=== PATIENT | female | born 1955 | race Caucasian/White ===

== ENCOUNTER 2016-12-14 20:32 | Emergency (ER) | payer SELFPAY ==
[~2016-12-14] VITALS: Ht 154.9 cm; Wt 63.5 kg
[2016-12-14 20:43] VITALS: Ht 154.9 cm; Wt 63.5 kg
[2016-12-15] MEDS ORDERED: SOD CHLORIDE 0.9% 1,000 ML IV STA (00:27)
[2016-12-15] MEDS ORDERED: HYDROmorphONE 1 MG/ML SYG IV STA (00:27)
[2016-12-15] MEDS ORDERED: ONDANSETRON 4 MG INJ IV STA (00:27)
[2016-12-15] MEDS ORDERED: LORAZEPAM 2 MG INJ IV ONE (00:30)
--- NOTE | 2016-12-15 00:33 | ERA ---
ER Documentation Chief Complaint Date/Time DATE: 12/15/16 TIME: 00:30 Chief Complaint cp, dizziness, abd pain with n/v all day today HPI 61-year-old female who presents to the emergency room with multiple complaints. The majority of her complaints include nonbloody nonbilious emesis that started this afternoon with associated epigastric abdominal discomfort that is moderate to severe and cramping and nonradiating. She denies any chest pain to me but noted chest pain in triage. She denies any fevers or chills, regular bowel movements and no abdominal surgical history. She denies any recent travel sick contacts or antibiotics, no lumbar back pain. ROS All systems reviewed and are negative except as per history of present illness. Medications Home Meds Active Scripts Polyethylene Glycol* (Miralax*) 17 Gm Powd.pack, 17 GM PO DAILY Y for CONSTIPATION, #7 Prov:CRESCENCIO JUAREZ MD 12/15/16 Ciprofloxacin Hcl* (Ciprofloxacin Hcl*) 500 Mg Tablet, 500 MG PO BID for 5 Days , TAB Prov:CRESCENCIO JUAREZ MD 12/15/16 Ondansetron (Ondansetron Odt) 4 Mg Tab.rapdis, 4 MG PO Q6H Y for NAUSEA AND/OR VOMITING, #30 TAB Prov:CRESCENCIO JUAREZ MD 12/15/16 Dicyclomine Hcl* (Bentyl*) 10 Mg Capsule, 10 MG PO QID Y for abdominal cramping , #20 CAP Prov:CRESCENCIO JUAREZ MD 12/15/16 Allergies Allergies: Coded Allergies: No Known Allergy (Unverified , 12/15/16) FmHx Family History: No diabetes Physical Exam Vitals Vital Signs Date Time Temp Pulse Resp B/P Pulse Ox O2 Delivery O2 Flow Rate FiO2 12/15/16 03:02 97.7 74 13 117/58 100 Room Air 12/14/16 20:43 98.0 78 20 117/59 100 Physical Exam General: Tearful anxious and uncomfortable Head: Normocephalic, atraumatic. Eyes: Pupils equally reactive, EOM intact ENT: Moist mucous membranes Neck: Supple, no lymphadenopathy Respiratory: Lungs clear bilaterally, no distress Cardiovascular: RRR, no murmurs, rubs, or gallops Abdominal: Soft, mild diffuse abdominal tenderness localizing to the epigastrium , negative Moura sign, no tenderness to McBurney's point, no pulsatile mass : Deferred MSK: No edema, no unilateral swelling, 5/5 strength Neurologic: Alert and oriented, moving all extremities, normal speech, no focal weakness, no cerebellar signs Skin: No rash Psych: Normal mood Result Diagram: 12/15/16 0041 12/15/16 0041 Results 24 hrs Laboratory Tests Test 12/15/16 00:35 12/15/16 00:41 12/15/16 00:55 Urine Color YELLOW Urine Clarity SLIGHTLY CLOUDY Urine pH 7.0 Urine Specific [place] 1.019 Urine Ketones 1+mg/dL Urine Nitrite NEGATIVEmg/dL Urine Bilirubin NEGATIVEmg/dL Urine Urobilinogen NEGATIVEmg/dL Urine Leukocyte Esterase 1+Kareem/ul Urine Microscopic RBC 2/HPF Urine Microscopic WBC 4/HPF Urine Squamous Epithelial Cells FEW/HPF Urine Mucus FEW/HPF Urine Yeast (Budding) FEW/HPF Urine Hemoglobin NEGATIVEmg/dL Urine Glucose NEGATIVEmg/dL Urine Total Protein NEGATIVEmg/dl White Blood Count 13.010^3/ul Red Blood Count 5.0710^6/ul Hemoglobin 13.6g/dl Hematocrit 40.4% Mean Corpuscular Volume 79.7fl Mean Corpuscular Hemoglobin 26.8pg Mean Corpuscular Hemoglobin Concent 33.7g/dl Red Cell Distribution Width 13.7% Platelet Count 04202^3/UL Mean Platelet Volume 9.9fl Neutrophils % 82.1% Lymphocytes % 14.0% Monocytes % 3.4% Eosinophils % 0.0% Basophils % 0.2% Nucleated Red Blood Cells % 0.0/100WBC Neutrophils # (Manual) 1110^3/ul Lymphocytes # 1.810^3/ul Monocytes # 0.410^3/ul Eosinophils # 0.010^3/ul Basophils # 0.010^3/ul Nucleated Red Blood Cells # 0.010^3/ul Sodium Level 141mmol/L Potassium Level 4.3mmol/L Chloride Level 104mmol/L Carbon Dioxide Level 23mmol/L Anion Gap 18 Blood Urea Nitrogen 17mg/dl Creatinine 0.57mg/dl Glucose Level 136mg/dl Calcium Level 10.1mg/dl Total Bilirubin 1.1mg/dl Direct Bilirubin 0.00mg/dl Indirect Bilirubin 1.1mg/dl Aspartate Amino Transf (AST/SGOT) 25IU/L Alanine Aminotransferase (ALT/SGPT) 24IU/L Alkaline Phosphatase 118IU/L Troponin I < 0.012ng/ml Total Protein 8.5g/dl Albumin 4.7g/dl Globulin 3.80g/dl Albumin/Globulin Ratio 1.23 Lipase 77U/L Lactic Acid Level 2.1mmol/L Current Medications Medications (Trade) Dose Ordered Sig/Lorin Route PRN Reason Start Time Stop Time Status Last Admin Dose Admin Sodium Chloride (NS) 1,000 ml @ 1,000 mls/hr Q1H STAT IV 12/15/16 00:27 12/15/16 01:26 DC 12/15/16 01:08 Hydromorphone HCl (Dilaudid) 0.5 mg ONCE STAT IV 12/15/16 00:27 12/15/16 00:29 DC 12/15/16 01:08 Ondansetron HCl (Zofran Inj) 4 mg ONCE STAT IV 12/15/16 00:27 12/15/16 00:29 DC 12/15/16 01:08 Lorazepam 0.5 mg 0.5 mg ONCE ONCE IV 12/15/16 00:30 12/15/16 00:31 DC 12/15/16 01:09 Sodium Chloride (NS) 100 ml @ ud STK-MED ONCE .ROUTE 12/15/16 03:07 12/15/16 03:08 DC 12/15/16 03:10 Iohexol (Omnipaque 300mg/ ml) 150 ml STK-MED ONCE .ROUTE 12/15/16 03:07 12/15/16 03:08 DC 12/15/16 03:10 Procedures/MDM EKG, MONITORS, & DIAGNOSTIC IMAGING: EKG: I reviewed and interpreted a 12-lead EKG. Rhythm: Normal sinus rhythm Ectopy: None Intervals: No abnormalities ST segments: No elevations or depressions T waves: No contiguous inversions CT abdomen and pelvis: IMPRESSION: Small bowel feces sign in prominent loops of small bowel left upper quadrant and right lower quadrant is nonspecific. Evaluation is limited without intravenous contrast. Differential diagnosis includes, but is not limited to, dysmotility and malabsorption or small bowel ischemia. Recommend correlation with serum lactate. Patient may benefit from repeat CT abdomen pelvis with intravenous contrast. Scattered colonic diverticulosis without diverticulitis. Appendix is not identified. Findings were discussed with Dr. Crescencio Juarez by Dr. Lindsay Fay on November at 1:[address] abd w/ iv IMPRESSION: Fecalized loops of small bowel within the left abdomen could suggest a mild ileus or enteritis, unchanged. There is no bowel obstruction. Moderate retained stool within the colon. Moderately distended bladder. Small hepatic cyst. Mild bibasilar atelectasis. Otherwise no acute abnormality identified within the abdomen and pelvis. LAB INTERPRETATION: Slight leukocytosis of 13. Borderline lactic acid of 2.1 MEDICAL DECISION MAKING: The patient presents to the emergency room with abdominal pain nausea and vomiting. She reported chest pain at triage but denies this to me. I believe her symptoms have a very broad differential including gastritis, viral process or acute intra-abdominal process such as bowel obstruction, colitis. Low clinical concern for hepatobiliary obstruction or acute cholecystitis or appendicitis. However, given the patient's age CT imaging would be appropriate. I do not believe this is consistent with acute vascular process such as dissection or aneurysm. Consider nephrolithiasis as well. No evidence of cardiopulmonary process such as acute NM however EKG and troponin would be appropriate given her epigastric abdominal component. ER COURSE: The patient's initial CT was concerning for possible mesenteric ischemia. Based on the patient's abdominal pain CT with IV contrast ordered. The patient' s lactic acid is borderline. However her pain is dramatically improved and controlled and she is resting and sleeping. Her repeat CT shows evidence of possible enteritis versus ileus. However the patient is having bowel movements. I do not believe this is consistent clinically with a ileus. I believe the patient may benefit from a short course of ciprofloxacin, Bentyl and stool softener given predominance of stool throughout the colon. I feel the patient can be safely discharged home with close follow-up with return precautions for fever or intractable abdominal pain. I kept the patient and/or family informed of laboratory and diagnostic imaging results throughout the emergency room course. DISPOSITION PLAN: We discussed follow up with the patient's primary care doctor within 24 to 48 hours as needed. We also discussed return to the emergency room for worsening symptoms or worsening condition. Outpatient referral: [None required] Discharge Medications: Bentyl, Zofran, MiraLAX, Cipro Departure Diagnosis: Primary Impression: Enteritis Additional Impression: Abdominal pain Qualified Code: R10.84 - Generalized abdominal pain Condition: Stable BORM, CRESCENCIO A., MD Dec 15, 2016 00:31
[2016-12-15 00:56] LABS: BASOPHILS % 0.2 % (0.0-2.0); HEMATOCRIT 40.4 % (37.0-47.0); HEMOGLOBIN 13.6 g/dl (12.0-16.0); LYMPHOCYTES # 1.8 10^3/ul (0.8-2.9); MEAN CORPUSCULAR HEMOGLOBIN 26.8 pg (29.0-33.0); MEAN CORPUSCULAR HGB CONC 33.7 g/dl (32.0-37.0); MEAN CORPUSCULAR VOLUME 79.7 fl (82.0-101.0); MEAN PLATELET VOLUME 9.9 fl (7.4-10.4); MONOCYTE # 0.4 10^3/ul (0.3-0.9); MONOCYTES % 3.4 % (0.0-11.0); NEUTROPHILS % 82.1 % (39.0-77.0); PLATELET COUNT 307 10^3/UL (140-415); RED BLOOD COUNT 5.07 10^6/ul (4.20-5.40); RED CELL DISTRIBUTION WIDTH 13.7 % (11.5-14.5)
[2016-12-15 01:31] LABS: ADD UMIC YES; UR ASCORBIC ACID 40 mg/dL (NEGATIVE); UR BILIRUBIN (Dip) NEGATIVE (NEGATIVE); UR BLOOD (Dip) NEGATIVE (NEGATIVE); UR BUDDING YEAST FEW /HPF (NONE SEEN); UR CLARITY SLIGHTLY CLOUDY (CLEAR); UR COLOR YELLOW (YELLOW); UR GLUCOSE (Dip) NEGATIVE (NEGATIVE); UR KETONES (Dip) 1+ mg/dL (NEGATIVE); UR LEUKOCYTE ESTERASE (Dip) 1+ Leu/ul (NEGATIVE); UR MUCUS FEW /HPF (NONE SEEN); UR NITRITE (Dip) NEGATIVE (NEGATIVE); UR RBC 2 /HPF (0-5); UR SPECIFIC GRAVITY (Dip) 1.019 (1.003-1.030); UR SQUAMOUS EPITHELIAL CELL FEW /HPF (FEW); UR TOTAL PROTEIN (Dip) NEGATIVE (NEGATIVE); UR UROBILINOGEN (Dip) NEGATIVE (NEGATIVE)
[2016-12-15 01:32] LABS: TROPONIN-I < 0.012 ng/ml (0.00-0.12)
--- NOTE | 2016-12-15 01:42 | RADRPT ---
AMENDMENT: 12/24/2016 10:48:54 PM Lindsay Fay M.D One or more of the following dose reduction techniques were used: - Automated exposure control. - Adjustment of the mA and/or kV according to patient size. - Use of iterative reconstruction technique. PROCEDURE: CT ABDOMEN AND PELVIS WITHOUT CONTRAST: CLINICAL INDICATION: 61 years of age, female , abdominal pain. COMPARISON: None available. TECHNIQUE: CT of the abdomen and pelvis was performed without intravenous contrast. Oral contrast wa s not administered prior to the examination. Coronal and sagittal reformatted images were obtained from the axial source images. Images were revi ewed on a high-resolution PACS workstation. Dose information: Based on a 32 cm phantom, the estimated radiation dose (CTDI vol mGy) for each ser ies in this exam is . The estimated cumulative dose (DLP mGy-cm) is . FINDINGS: In the absence of intravenous contrast, the study constitutes a limited assessment of the solid orga ns, bowel and vessels. LUNG BASES: Linear atelectasis at bilateral lung bases. Calcified granuloma right lung base. ABDOMEN/PELVIS: Liver: Sub centimeter hypodensity left hepatic lobe likely represents a cyst. Otherwise normal. Gallbladder: Normal noncontrast appearance. Bile ducts: No intrahepatic or extrahepatic biliary duct dilatation. Spleen: Normal noncontrast appearance. Pancreas: Normal noncontrast appearance. Adrenal glands: Normal noncontrast appearance. Kidneys and ureters: Normal noncontrast appearance. Negative for urinary calculi or hydronephrosis. There is a calcified phlebolith in the right gonadal vein. Aorta and IVC: Minimal atherosclerosis in the descending thoracic aorta. Negative for atherosclerot ic calcification of the abdominal aorta. Iliac vessels are tortuous. Lymph nodes: Normal noncontrast appearance. Gastrointestinal tract: Scattered colonic diverticula without diverticulitis. There are some promin ent loops of small bowel in the left upper quadrant and right lower quadrant that demonstrate the sm all bowel feces sign without bowel wall thickening or pneumatosis. These loops measure up to 2.5 cm in the right lower quadrant. Appendix: Not visualized Bladder: Normal noncontrast appearance. Pelvic Organs: The uterus and adnexa are unremarkable. Peritoneal cavity: No free fluid or free intraperitoneal air. Abdominal wall: Normal noncontrast appearance. BONES: Musculoskeletal: Degenerative changes in the spine with multilevel facet joint arthritis and degener ative disk disease at L5-S1. 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 IMPRESSION: Small bowel feces sign in prominent loops of small bowel left upper quadrant and right lower quadran t is nonspecific. Evaluation is limited without intravenous contrast. Differential diagnosis include s, but is not limited to, dysmotility and malabsorption or small bowel ischemia. Recommend correlat ion with serum lactate. Patient may benefit from repeat CT abdomen pelvis with intravenous contrast . Scattered colonic diverticulosis without diverticulitis. Appendix is not identified. Findings were discussed with Dr. Crescencio Juarez by Dr. Lindsay Fay on December 15, 2016 at 1:35 AM. RPTAT: HCTS Krystle Fay, Physician Date Time Electronically viewed and signed by Krystle Fay, Physician on 12/24/2016 22:50 CS/
[2016-12-15 02:12] LABS: ALANINE AMINOTRANSFERASE 24 IU/L (13-69); ALBUMIN 4.7 g/dl (3.3-4.9); ALBUMIN/GLOBULIN RATIO 1.23; ALKALINE PHOSPHATASE 118 IU/L (42-121); ANION GAP 18 (8-16); ASPARTATE AMINO TRANSFERASE 25 IU/L (15-46); BILIRUBIN,INDIRECT 1.1 mg/dl (0-1.1); BILIRUBIN,TOTAL 1.1 mg/dl (0.2-1.3); BLOOD UREA NITROGEN 17 mg/dl (7-20); CALCIUM 10.1 mg/dl (8.4-10.2); CARBON DIOXIDE 23 mmol/L (21-31); CHLORIDE 104 mmol/L (97-110); CREATININE 0.57 mg/dl (0.44-1.00); GLUCOSE 136 mg/dl (70-220); POTASSIUM 4.3 mmol/L (3.5-5.1); SODIUM 141 mmol/L (135-144); TOTAL PROTEIN 8.5 g/dl (6.1-8.1)
[2016-12-15] MEDS ORDERED: SOD CHLORIDE 0.9% 100 ML ONE (03:07)
[2016-12-15] MEDS ORDERED: IOHEXOL 300MG/ML 150 ML BTL ONE (03:07)
--- NOTE | 2016-12-15 03:18 | RADRPT ---
PROCEDURE: CT Abdomen and pelvis with contrast. CLINICAL INDICATION: Abdominal pain. TECHNIQUE: CT scan of the abdomen and pelvis with contrast was performed on a multi-detector high -resolution CT scanner. The patient was scanned following the uncomplicated administration of 100 c c of Omnipaque 300 intravenous contrast. Coronal and sagittal reformatted images were obtained from the axial source images. Images were reviewed on a high-resolution PACS workstation. One or more of the following dose reduction techniques were used: - Automated exposure control. - Adjustment of the mA and/or kV according to patient size. - Use of iterative reconstruction technique. Exam CTD/vol = 11.35 mGy. Total exam DLP = 596.50 mGy-cm. COMPARISON: 12/15/2016. FINDINGS: Evaluation of the lung bases demonstrates mild bibasilar atelectasis. Abdomen: The liver is normal in size. There is a small 7 mm cyst within the left lobe of the liver . There is no dilatation of the biliary tree. The gallbladder is not distended. The spleen, pancr eas and bilateral adrenal glands are within normal limits. Bilateral kidneys are normal in size wit h symmetric enhancement. There is no focal mass, hydronephrosis or hydroureter. There is no retrop eritoneal adenopathy. The abdominal aorta is of normal caliber. There is moderate retained stool within the colon. Again demonstrated are fecalized loops of small bowel within the left abdomen. There is no bowel obstruction or free air. A normal appendix is tim ntified. There is no diverticulosis or diverticulitis. There is no ascites. Pelvis: The bladder is moderately distended. The uterus and adnexa are within normal limits. Ther e is no significant pelvic adenopathy or free fluid. Evaluation of the osseous structures demonstrates no suspicious lytic or blastic lesion. IMPRESSION: Fecalized loops of small bowel within the left abdomen could suggest a mild ileus or enteritis, unch anged. There is no bowel obstruction. Moderate retained stool within the colon. Moderately distended bladder. Small hepatic cyst. Mild bibasilar atelectasis. Otherwise no acute abnormality identified within the abdomen and pelvis. .Hunter Galvez MD, MD Date Time Electronically viewed and signed by .Hunter Galvez MD, on 12/15/2016 03:17 .T/
[2016-12-15] MEDS ORDERED: DICY10CA60 PO (03:46)
[2016-12-15] MEDS ORDERED: ONDA4TAB14 PO (03:46)
[2016-12-15] MEDS ORDERED: CIPR500T4 PO (03:46)
[2016-12-15] MEDS ORDERED: POLY17PO6 PO (03:47)
[2016-12-15 03:52] VITALS: BP 115/61; PULSE 68; RESP 18; TEMP 97.7
== END 2016-12-15 03:52 | disposition home or self-care (01) ==
LOC: E/R 20:32
DX: K52.9 Noninfective gastroenteritis and colitis, unspecified (principal); R10.84 Generalized abdominal pain; R40.2142 Coma scale, eyes open, spontaneous, at arrival to emergency department; R40.2252 Coma scale, best verbal response, oriented, at arrival to emergency department; R40.2362 Coma scale, best motor response, obeys commands, at arrival to emergency department
CPT/HCPCS: 36415; 74176; 74177; 80053; 81001; 83605; 83690; 84484; 85025; 93005; 96361; 96374; 96375; 99285; J1170; J2060; J2405; J7030; Q9967